=== PATIENT | female | born 1945 | race Caucasian/White ===

== ENCOUNTER → 2020-07-26 | Outpatient (CLI) | payer MEDICARE, BC, OTHER ==
[~2020-07-26] MED LIST: ALBU8.5H; ASPI-1; BUDE10.2; FOSI40TA3; MULTCAP PO
--- NOTE | 2020-08-13 10:47 | REP ---
LUNG SCREENING CONTINUE CLINICAL: High risk factors. TECHNIQUE: Axial noncontrast images from the thoracic inlet to the upper abdomen using lung screening technique and viewed in lung windows only. FINDINGS: There is a 5-mm perifissural nodule in the right lung (Image 41), few scattered smaller 2-3 mm noncalcified nodules are also identified. No consolidation. No further nodule or mass. Tracheobronchial tree is patent. No effusion. No pneumothorax. Biapical scarring noted. 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 IMPRESSION: Lung-RADS Category 2 including perifissural nodule. Recommendations include annual low-dose CT follow-up evaluation. MTDD
== END ==
LOC: M RAD 09:28
PROVIDERS: ATTEND Internal Medicine Hematology & Oncology
DX: Z12.2 Encounter for screening for malignant neoplasm of respiratory organs (principal); F17.210 Nicotine dependence, cigarettes, uncomplicated